=== PATIENT | male | born 1955 | race Two or more races ===

== ENCOUNTER 2023-01-01 07:50 | Inpatient (IN) | payer OTHER ==
[~2023-01-01] VITALS: Ht 193 cm; Wt 85.5 kg
[2023-01-01] VITALS (7 sets, daily range): BP systolic 104–114; BP diastolic 65–80
[2023-01-01] MEDS ORDERED: NITROGLYCERIN 0.4 MG SL TAB SL PRN (15:15)
[2023-01-01] MEDS ORDERED: MORPHINE SULFATE INJ 2 MG/ml SYRG IV PRN ×2 (15:15)
[2023-01-01] MEDS ORDERED: HYDROcodone-ACET 5/325MG TAB PO PRN (15:15)
[2023-01-01] MEDS ORDERED: ONDANSETRON HCL 4 MG/2 ML VIAL IV PRN (15:15)
[2023-01-01] MEDS: FUROSEMIDE 20 MG/2 ML VIAL IV SCH (16:23)
[2023-01-01 17:29] LABS: Urine WBC None Seen /hpf (0 - 3)
[2023-01-01 17:37] LABS: Urine Bacteria NONE SEEN /hpf (None Seen); Urine Blood Negative /uL (Negative); Urine Specific Gravity 1.026 (1.001-1.035)
[2023-01-01 19:02] LABS: Basophils # (auto) 0 10 ^3/uL (0-0.2); Basophils % (auto) 0.1 % (0.0-2.0); Eosinophils # (auto) 0 10 ^3/uL (0-0.8); Hematocrit 39.1 % (41.0-53.0); Hemoglobin 12.9 g/dL (13.5-17.5); Lymphocytes # (auto) 0.3 10 ^3/uL (0.4-5.4); Lymphocytes % (auto) 4.9 % (10.0-50.0); Mean Corpuscular Hemoglobin 32.2 pg (28.0-32.0); Mean Corpuscular Volume 97.5 fL (80.0-100.0); Monocytes # (auto) 0.2 10 ^3/uL (0-1.3); Monocytes % (auto) 2.7 % (0.0-12.0); Neutrophils # (auto) 5.5 10 ^3/uL (1.6-8.6); Neutrophils % (auto) 92.3 % (37.0-80.0); Nucleated Red Blood Cells % 0.1 %; Red Blood Cells 4.01 10^6/uL (4.5-5.90); Red Cell Distribution Width 16.5 % (11.8-14.3)
[2023-01-01 19:17] LABS: Calcium 9.3 mg/dL (8.5-10.1); Potassium 4.9 mmol/L (3.5-5.1)
[2023-01-01 19:19] LABS: BUN/Creatinine Ratio 30.8 (10.0-20.0)
[2023-01-01 19:22] LABS: Bilirubin, Total 1.2 mg/dL (0.2-1.0); Total Protein 6.9 g/dL (6.4-8.2)
[2023-01-01] MEDS: BUDESONIDE (INHALATION) 0.5 MG/2 ML NEB NEB SCH (21:27)
[2023-01-01] MEDS: POTASSIUM EFFERVESENT TAB 25 MEQ PO SCH (22:00)
[2023-01-01] MEDS: ATORVASTATIN 20 MG TAB PO SCH (23:33)
[2023-01-01] MEDS: ENOXAPARIN SOD 80 MG/0.8ML SYRINGE SC SCH (23:34)
[2023-01-01] MEDS: FAMOTIDINE 20 MG TAB PO SCH (23:34)
[2023-01-01] MEDS: METOPROLOL TARTRATE 25 MG TAB PO SCH (23:35)
[2023-01-02] VITALS (18 sets, daily range): BP systolic 99–120; BP diastolic 54–86
[2023-01-02 04:48] LABS: Basophils # (auto) 0.1 10 ^3/uL (0-0.2); Eosinophils # (auto) 0 10 ^3/uL (0-0.8); Hematocrit 37.3 % (41.0-53.0); Hemoglobin 12.4 g/dL (13.5-17.5); Lymphocytes # (auto) 0.4 10 ^3/uL (0.4-5.4); Lymphocytes % (auto) 4.1 % (10.0-50.0); Mean Corpuscular Hemoglobin 32.5 pg (28.0-32.0); Mean Corpuscular Hgb Conc. 33.3 g/dL (32.0-36.0); Mean Corpuscular Volume 97.4 fL (80.0-100.0); Monocytes # (auto) 0.6 10 ^3/uL (0-1.3); Monocytes % (auto) 5.7 % (0.0-12.0); Neutrophils # (auto) 9.2 10 ^3/uL (1.6-8.6); Neutrophils % (auto) 89.2 % (37.0-80.0); Red Blood Cells 3.82 10^6/uL (4.5-5.90); Red Cell Distribution Width 16.2 % (11.8-14.3); White Blood Cell 10.3 10^3/uL (4.4-10.8)
[2023-01-02 05:00] LABS: INR 1.4 (0.9-1.15); Partial Thromboplastin Time 31.4 sec (24.6-33.4)
[2023-01-02 05:04] LABS: Albumin 3.2 g/dL (3.4-5.0); BUN/Creatinine Ratio 32.6 (10.0-20.0); Calcium 9.4 mg/dL (8.5-10.1)
[2023-01-02 05:06] LABS: Bilirubin, Total 1.1 mg/dL (0.2-1.0); Total Protein 6.7 g/dL (6.4-8.2)
[2023-01-02] MEDS: POTASSIUM EFFERVESENT TAB 25 MEQ PO SCH ×3 (09:04→22:00)
[2023-01-02] MEDS: BUDESONIDE (INHALATION) 0.5 MG/2 ML NEB NEB SCH ×2 (09:12→22:22)
[2023-01-02] MEDS: ASPirin-EC 81 mg tab PO SCH (10:21)
[2023-01-02] MEDS: FAMOTIDINE 20 MG TAB PO SCH (10:21)
[2023-01-02] MEDS: FUROSEMIDE 20 MG/2 ML VIAL IV SCH ×2 (10:21→18:05)
[2023-01-02] MEDS: ENOXAPARIN SOD 80 MG/0.8ML SYRINGE SC SCH ×2 (10:21→22:43)
[2023-01-02] MEDS: METOPROLOL TARTRATE 25 MG TAB PO SCH ×2 (10:22→22:43)
[2023-01-02] MEDS ORDERED: ASPI-543 PO (11:32)
[2023-01-02] MEDS ORDERED: FURO1TAB33 PO (11:32)
[2023-01-02] MEDS ORDERED: ATOR20TA50 PO (11:32)
[2023-01-02] MEDS ORDERED: MET25T PO (11:32)
[2023-01-02] MEDS: ATORVASTATIN 20 MG TAB PO SCH (22:41)
[2023-01-03] VITALS (15 sets, daily range): BP systolic 84–110; BP diastolic 59–83
[2023-01-03] MEDS: FUROSEMIDE 20 MG/2 ML VIAL IV SCH ×2 (06:00→06:45)
[2023-01-03] MEDS: BUDESONIDE (INHALATION) 0.5 MG/2 ML NEB NEB SCH (06:30)
[2023-01-03] MEDS: ASPirin-EC 81 mg tab PO SCH (08:54)
[2023-01-03] MEDS: POTASSIUM EFFERVESENT TAB 25 MEQ PO SCH (08:54)
[2023-01-03] MEDS: ENOXAPARIN SOD 80 MG/0.8ML SYRINGE SC SCH (08:54)
[2023-01-03] MEDS: METOPROLOL TARTRATE 25 MG TAB PO SCH (09:59)
== END 2023-01-03 16:25 | disposition hospice, home (50) | DRG 280 ==
LOC: TELE 14:44 → DOU IN ICU 15:12
PROVIDERS: ADMIT Internal Medicine; ATTEND Internal Medicine
DX: I21.4 Non-ST elevation (NSTEMI) myocardial infarction (principal); I50.23 Acute on chronic systolic (congestive) heart failure; I27.20 Pulmonary hypertension, unspecified; I11.0 Hypertensive heart disease with heart failure; Z20.822 Contact with and (suspected) exposure to COVID-19; F31.9 Bipolar disorder, unspecified; E78.5 Hyperlipidemia, unspecified; F43.10 Post-traumatic stress disorder, unspecified; I48.91 Unspecified atrial fibrillation; I25.2 Old myocardial infarction; Z82.49 Family history of ischemic heart disease and other diseases of the circulatory system
CPT/HCPCS: 36415; 80053; 81001; 84484; 85025; 85610; 85730; 87081; 87426; 93306; 94640; G0378